=== PATIENT | female | born 1975 | race Caucasian/White ===

== ENCOUNTER 2020-09-12 08:52 | Day surgery (SDC) | payer SELFPAY ==
[2020-09-08 15:44] LABS: Hematocrit 36.5 % (37-47); Hemoglobin 12.2 g/dL (12.0-15.0); Mean Corp Hgb Conc 33.4 g/dL (32-36); Mean Corpuscular Hgb 30.7 pg (27.0-32.0); Mean Corpuscular Volume 91.9 fL (81-99); Mean Platelet Vol. 9.8 fl (6.2-12.0); Platelet Count 292 K/mm3 (150-450); RBC Distribution Width CV 12.4 % (11.6-14.6); RBC Distribution Width SD 41.9 fl (35.1-43.9); Red Blood Count 3.97 M/mm3 (4.2-5.4); White Blood Count 8.6 K/mm3 (4.4-11.0)
[2020-09-08 15:50] LABS: Partial Thromboplast Time 26.4 Seconds (24.1-36.2)
[2020-09-08 16:11] LABS: Creatinine, Serum 0.78 mg/dL (0.55-1.02); EST Glomerular Filtration Rate 85 mL/min (>60); Est Glom Filt Rate - Afr Amer 102 mL/min (>60)
--- NOTE | 2020-09-10 17:54 | HP.PCM_ITS ---
History and Physical Date of Admission: 09/12/20 Surgical History and Physical Sarina Allison, a 45 year old female 0 0 0 0 0, presents for L/S Bilateral Salpingectomy and Hydrosalpinx removal. on September 12, 2020 at 7:30. -- Pelvic Cysts and Pain; Likely Hydrosalpinx -- Sarina was seen for pelvic cyst. Patient has been following with PCP for pelvic cyst over the past year and wanted a second opinion. Patient had Ca-125 that is normal. Patient states that she has regular monthly menses. Patient has h/o tubal for control and has had fullness in her abdomen since her tubal several years ago. Has pelvic discomfort, low back pain which began years ago. Sarina claims it started gradually It is located in the lower abdomen. Sarina characterizes it to be to the back.; Sarina characterizes it to be to the left. Sarina characterizes the quality aching.; Sarina characterizes the quality pressure. Severity is mild and not improving; Additional comments are: outside u/s shows 8 cm cyst on left and 6 cm cyst on right; then recent CA-125 normal (11). MEDICATIONS HISTORY: Patient is also takin. progesterone micronized 200 mg capsule, 1 PO QD ALLERGIES: No Known Drug Allergies Infections - unsure if had chicken pox Illnesses - none Accidents - None Hospitalizations - Childbirth and see surgery last pap was about 7 years ago; Review of Systems: GENERAL - Denies fever, or chills SKIN - Denies skin changes EYES - Denies visual changes EARS - Denies difficulty hearing NOSE - Denies nasal congestion or bleeding MOUTH - Denies sore throat or difficulty swallowing NECK - Denies pain or swelling RESPIRATORY - Denies shortness of breath or wheezing CARDIOVASCULAR - Denies palpitations or chest pain GASTROINTESTINAL - Denies nausea, vomiting, diarrhea, constipation GENITOURINARY - Denies dysuria, frequency of urination, incontinence of urine MUSCULOSKELETAL - Denies joint or muscle pain NEUROLOGICAL - Denies localized numbness or weakness PSYCHIATRIC - Denies depression or anxiety ENDOCRINE - Denies heat or cold intolerance, weight loss or gain HEMATO-IMMUNOLOGIC - Denies excessive bleeding with cuts SOCIAL HISTORY: Alcohol Use - denies drinking Smoking - denies smoking Diet - limits gluten Lifestyle - Exercise - active Employer - homemaker Illicit Drug Use - denies use of street drugs Sexual Activity - Residence - lives with Spouse-Sig Other Name - Will Spouse-Sig Other Occupation - [employer] Control - tubal FAMILY HISTORY: MENSTRUAL HISTORY: LMP Known?- Definite Amount/Duration - 2-3 days, Regularity - regular, Frequency - monthly days, LMP - 07/29/20, Age Onset Menarche - 13 PAST PREGNANCIES: Total Pregnancies - 0; Full Term Pregnancies - 0; Premature - 0; Abortions, Induced - 0; Abortions, Spontaneous - 0; Ectopics - 0; Multiple Births - 0; Living Children - 0 SURGICAL HISTORY: 1. Multiple 1999, 2001, 2003, 2005 (tubal ), 2007, 2009, 2011 PHYSICAL EXAM BP- 94/68 Sitting, Right arm, regular cuff Weight- 128.41039 lbs Height- 64.00 inch BMI:22.12 CONSTITUTIONAL - NAD, well nourished, and well developed LUNGS - CTA x2 without wheezes, crackles or rales CARDIAC - Regular rate and rhythm without rubs, murmurs, or gallops ABDOMEN - Without hepatosplenomegaly, distention, masses, rebound, or guarding; normal bowel sounds; no hernias EXTREMITIES - No edema or calf tenderness NEUROLOGICAL - Cranial nerves II-XII grossly intact PSYCHIATRIC - A and O to time, place, person, mood and affect External Genitial Vagina - non-tender without lesions Urethra/Urethral Meatus - non-tender Bladder - non-tender Vagina - vaginal lee are pink and moist without loss of rugae and no evidence of atropy Cervix - without cervical motion tenderness and has normal size and features without evident lesions Uterus - multiparous size 6 cm & wt 75-125 g Adnexa - clear without massess or tenderness and mild tenderness both adnexa ASSESSMENT/PLAN: 1. Chronic Salpingitis and Ovarian Cyst Ot/unspec U/S shows large dilated fallolpian tube(s?) causing abnormality and likely symptoms. Discussed options for treatment and plan to proceed with L/S bilateral salpingectomy. Discussed RBAs including possible need for laparotomy and all questions answered.
[2020-09-12] VITALS (7 sets, daily range): BP systolic 94–115; BP diastolic 44–66; PULSE 75–97; RESP 16; TEMP 36.6–37.3; O2SAT 97–100; BMI 21.1
[2020-09-12] MEDS: Lactated Ringers 1,000 ML 100 ML IV (09:57)
--- NOTE | 2020-09-12 10:35 | FALS_PTH ---
PATIENT: PARVEEN AYON LOC: [facility] [place] U#:[id number] AGE/SX: 45/F ROOM: RE09/12/[address]: Dr. Benito Mccann MD : 1975 BED: DIS: 09/12/2020 SPEC #: [id number] RECD: 09/12/20 13:33 STATUS: REESE JAROCHO #: [id number] NASREEN: 09/12/20 10:[address]: Benito Mccann DEPT: SURGICAL PATHOLOGY RECD BY: Jaye Willis Tissues: Fallopian tube Procedures: Surgery Specimen Level IV HEADER OPERATION: Laparoscopic salpingectomy PRE-OP DIAGNOSIS: Chronic salpingitis and ovarian cyst TISSUE SUBMITTED: Bilateral tubes MICROSCOPIC DIAGNOSIS Bilateral fallopian tubes, salpingectomies: One fallopian tube, complete cross-sectioning with benign paratubal cyst. Other fallopian tube with hydrosalpinx. AM:mandy 09/14/20 MICROSCOPIC DESCRIPTION Slides are reviewed. GROSS DESCRIPTION Received in fixative is one container labeled with the patient's name and designated bilateral fallopian tubes. The specimen consists of four fragments, three of which are tubular and range in size from 1.5 to 3 cm. The largest of these contains a fimbriated end. Configuration Management Administrator portions of these are submitted in cassette 1. The second fragment consists of a saccular light to dark sharp tissue measuring 8.5 x 2.5 x 1.5 cm. No distinct fimbriated end is identified. The inner lining of the cystic space is smooth and glistening with no papillary projections. Configuration Management Administrator sections from this fragment are submitted in cassette 2. / AM:mandy 09/13/20 TC:4 CPT: 67957 x2
[2020-09-12] MEDS: Cefotetan 2 GM in 0.9% NS 100 ML IV (11:44)
[2020-09-12] MEDS: Ropivacaine 0.5% 30 ML Vial (12:11)
--- NOTE | 2020-09-12 12:59 | PCM.OPRPT ---
Report of Operation Date of Procedure: 09/12/20 Pre-Operative Diagnosis: Bilateral Hydrosalpinx Post-Operative Diagnosis: Bilateral Hydrosalpinx Surgery/Procedure Performed:: Laparoscopic Bilateral Salpingectomy Description of Surgical Findings:: Normal-appearing right ovary and uterus. Left fallopian tube dilated to approximately 4 cm x 10 cm and right fallopian tube dilated 2 cm x 2 cm. Left ovary with adhesions of the fallopian tube to the ovarian surface. manager company: [employer] Type of Anesthesia:: General - Endotracheal Anesthesiologist: Kika Coyle Specimen's removed: Bilateral fallopian tubes Estimated Blood Loss (mL): Minimal Fluids Replaced: Crystalloid Description of Procedure: Surgeon: Benito Mccann MD, FACOG Indications: This is a 45 year old patient who has the above diagnosis. She has had multiple sections. She has had problems with pelvic pressure since her last and tubal. CT scan shows large dilated cystic masses and ultrasound suggest that this is bilateral hydrosalpinx. Patient has been counseled regarding the risk and indications of this procedure including the possibly of bleeding, infection, and injury to surrounding structures such as bowel bladder. All questions were answered. Procedure: The patient was taken to the operating room where after induction of general anesthesia, she was placed in the dorsolithotomy position and prepped and draped in the usual sterile fashion. The bladder was drained of approximately 400 cc of clear yellow urine with a catheter. Anterior cervix was grasped with the tenaculum. Conn cannula was placed and attention was turned toward the laparoscopic portion of the procedure. Approximately 20 cc of half percent ropivacaine was injected subumbilically, suprapubically and midway between. A 5 mm bladeless trocar was placed subumbilically and intraperitoneal placement confirmed. After CO2 insufflation was complete, a 5 mm bladeless trocar was introduced suprapubically. This was eventually changed to a 10/12 mm bladeless trocar. The above findings were noted. A 5 mm bladeless port was then placed midway between these 2 ports for tubal manipulation. After draining the fluid from the left hydrosalpinx each fallopian tube was identified to its fimbriated end and an Enseal device was used to divide the mesosalpinx to the uterus. Tubes were removed through the lower 5 mm port. The peritoneal cavity and upper abdomen were examined and noted to be normal. The pelvis was irrigated and photographs were taken. Laparoscopic instruments with as much CO2 gas as possible were removed and incisions were closed with interrupted 4-0 Monocryl suture. Fascia on the lower 12 mm port was closed with running 3-0 Monocryl suture. Steri-Strips placed across the incision. Vaginal instruments were removed. The patient tolerated the procedure well was taken to recovery room in satisfactory condition and sponge instrument and needle counts were all reportedly correct. Estimated blood loss for the case was minimal. There were no apparent complications of the surgery. Specimens to pathology was bilateral tubes with hydrosalpinx Grafts/Implants Used: None - Complications None - Admit VTE Documentation VTE Present on Admission: Yes VTE Mechan Device Prophylaxis: SCD's
--- NOTE | 2020-09-12 13:08 | DCINST_ITS ---
Discharge Diet: No Restrictions - Increase fluid intake for the next 48 hours. Discharge Activity: Return to Normal Activity, May Drive - when you are no longer taking pain/narcotic medicines., May Shower, May Take a Tub Bath May resume sexual activity in: 3 weeks Additional Activity Instructions:: Ambulate often the next week after surgery. Nothing in the vagina for 5 days. Call your doctor if your incision/area has: Continuous Slow Oozing, Sudden Increased Bleeding, Increased Pain/ Swelling, Increased Redness, Foul Smelling Discharge Call your doctor if you observe: Fever of 101 or Higher, Inability to urinate, Inability to have a bowel movement, Using more than one pad per hour Allergies/Adverse Reactions: Allergies No Known Allergies Allergy (Verified 09/05/20 14:16) Medications to take at Discharge Ascorbic Acid/Multivit-Min [Emergen-C 1,000 mg Packet] 1,000 mg PO DAILY 09/05/20 Calcium Carb/D3/Magnesium/Zinc [Izoexuw-Htx-Btum-Vit D Tablet] 1 ea PO PRN PRN 09/05/20 Dextrin [Fiber] 350 gm PO PRN PRN 09/05/20 Flaxseed Oil 1,000 mg PO DAILY 09/05/20 Garlic 1 ea PO PRN PRN 09/05/20 Lactobacillus Acidophilus [Acidophilus] 1 ea PO DAILY 09/05/20 Multivitamin [Daily Multiple Vitamin] 1 ea PO DAILY 09/05/20 Progesterone, Micronized [Progesterone] 200 mg PO DAILY 09/05/20 Oxycodone [Oxyir] 5 mg PO Q6H PRN PRN 7 Days #10 tablet 09/12/20 The following prescriptions were given: Oxycodone [Oxyir] 5 mg PO Q6H PRN PRN 7 Days #10 tablet PRN Reason: Pain Score 6-10 Transmission Status: Sent to [facility] Primary Care Physician: ELINOR NOLEN [Other] Test Results: Test results from this visit will be discussed in further detail at your follow- up appointment, if applicable. Please Follow Up With: Benito Mccann MD - [phone] When: 3 to 4 weeks
== END 2020-09-12 16:03 | disposition home or self-care (01) ==
LOC: SDC 09:01
PROVIDERS: Referring Provider Obstetrics & Gynecology; Visit Provider Obstetrics & Gynecology
PROC: (CPT 58661; principal; 2020-09-12 10:20)
DX: N70.11 Chronic salpingitis (principal); N73.6 Female pelvic peritoneal adhesions (postinfective); N83.8 Other noninflammatory disorders of ovary, fallopian tube and broad ligament; N83.209 Unspecified ovarian cyst, unspecified side
CPT/HCPCS: 00840; 58661; 36415; 82565; 85027; 85610; 85730; 86850; 86900; 86901; 87426; 88302; 88305; C9803; J7120; C1760